=== PATIENT | female | born 1975 | race Caucasian/White ===

== ENCOUNTER → 2017-05-06 | Outpatient (CLI) | payer OTHER | LOC: FIMAGING 09:34 | PROVIDERS: ATTEND Physician Assistant | DX: M47.892 Other spondylosis, cervical region (principal); M46.92 Unspecified inflammatory spondylopathy, cervical region ==

== ENCOUNTER → 2017-05-16 | Outpatient (CLI) | payer OTHER | LOC: FIMAGING 12:00 | PROVIDERS: ATTEND Physician Assistant | DX: Z12.31 Encounter for screening mammogram for malignant neoplasm of breast (principal) | CPT/HCPCS: G0202 ==